=== PATIENT | male | born 1985 | race African-American/Black ===

== ENCOUNTER 2020-03-13 23:46 | Emergency (ER) | payer SELFPAY ==
[2020-03-14] MEDS ORDERED: PROCHLORPERAZINE EDISYLATE INJ 10 MG/2 ML VIAL ONE (02:17)
[2020-03-14] MEDS ORDERED: DIPHENHYDRAMINE HCL 50 MG/ML VIAL ONE (02:18)
[2020-03-14 04:55] LABS: ABSOLUTE BASOPHILS # (AUTO) 0.1 10^3/uL (0.0-0.2); ABSOLUTE EOSINOPHILS # (AUTO) 0.1 10^3/uL (0.0-0.6); ABSOLUTE MONOCYTES (AUTO) 0.7 10^3/uL (0.1-1.4); ABSOLUTE NEUT (AUTO) 4.2 10^3/uL (1.7-8.2); ALBUMIN 4.4 g/dL (3.5-5.0); ALKALINE PHOSPHATASE 62 U/L (38-126); ANION GAP 9 (5-19); ASPARTATE AMINO TRANSFERASE 25 U/L (17-59); BASOPHILS % (AUTO) 0.9 % (0-2); BILIRUBIN,DIRECT 0.2 mg/dL (0.0-0.4); BILIRUBIN,TOTAL 0.5 mg/dL (0.2-1.3); BLOOD UREA NITROGEN 15 mg/dL (7-20); CALCIUM 10.2 mg/dL (8.4-10.2); CARBON DIOXIDE 28 mmol/L (22-30); CHLORIDE 104 mmol/L (98-107); EOSINOPHILS % (AUTO) 1.1 % (0-6); GLUCOSE 88 mg/dL (75-110); HEMATOCRIT 41.7 % (37.9-51.0); HEMOGLOBIN 13.8 g/dL (13.5-17.0); LYMPHOCYTES % (AUTO) 28.5 % (13-45); MEAN CORPUSCULAR HEMOGLOBIN 29.4 pg (27.0-33.4); MEAN CORPUSCULAR HGB CONC 33.2 g/dL (32.0-36.0); MEAN CORPUSCULAR VOLUME 89 fl (80-97); MONOCYTES % (AUTO) 10.1 % (3-13); PLATELET COUNT 223 10^3/uL (150-450); POTASSIUM 4.4 mmol/L (3.6-5.0); RED CELL DISTRIBUTION WIDTH 12.5 % (11.5-14.0); SEGMENTED NEUTROPHILS % (AUTO) 59.4 % (42-78); TOTAL CELLS COUNTED % (AUTO) 100 %; TOTAL PROTEIN 7.4 g/dL (6.3-8.2)
--- NOTE | 2020-03-14 05:32 | RADIOLOGY REPORT (SQ) ---
EXAM DESCRIPTION: CHEST SINGLE VIEW IMAGES COMPLETED DATE/TIME: 03/14/2020 4:55 am REASON FOR STUDY: shortness of breath COMPARISON: None. EXAM PARAMETERS: NUMBER OF VIEWS: One view. TECHNIQUE: Single frontal radiographic view of the chest acquired. RADIATION DOSE: NA LIMITATIONS: None. FINDINGS: LUNGS AND PLEURA: No opacities, masses or pneumothorax. No pleural effusion. MEDIASTINUM AND HILAR STRUCTURES: No masses. Contour normal. HEART AND VASCULAR STRUCTURES: Heart normal in size. Normal vasculature. BONES: No acute findings. HARDWARE: None in the chest. OTHER: No other significant finding. IMPRESSION: NO ACUTE RADIOGRAPHIC FINDING IN THE CHEST. TECHNICAL DOCUMENTATION: JOB ID: [id number] 2010 [facility]- All Rights Reserved Reading location - IP/workstation name: [email or web address]
--- NOTE | 2020-03-14 14:19 | EKG REPORT ---
SEVERITY:- ABNORMAL ECG - SINUS RHYTHM PROBABLE LEFT VENTRICULAR HYPERTROPHY BORDERLINE T ABNORMALITIES, INFERIOR LEADS ST ELEV, PROBABLE NORMAL EARLY REPOL PATTERN : Confirmed by: Angely Cruz MD 14-Mar-2020 14:17:45
== END 2020-03-14 03:42 | disposition home or self-care (01) ==
LOC: ER 23:46
DX: U07.1 COVID-19 (principal); R06.02 Shortness of breath; R20.2 Paresthesia of skin; R07.9 Chest pain, unspecified; F17.200 Nicotine dependence, unspecified, uncomplicated; R19.7 Diarrhea, unspecified; R53.83 Other fatigue
CPT/HCPCS: 36415; 71045; 80053; 84484; 85025; 93005; 93010; 96361; 96374; 96375; 99285